=== PATIENT | male | born 1985 | race Caucasian/White ===

== ENCOUNTER 2016-07-03 20:55 | Emergency (ER) | payer OTHER ==
[2016-07-03 21:06] VITALS: BP 161/100; PULSE 109; TEMP 97.4; BMI 43.0
[2016-07-03] MEDS ORDERED: IBUPROFEN 600 MG TABLET (FP) PO ONE ×2 (21:33→21:36)
--- NOTE | 2016-07-03 21:35 | PDOC ---
History of Present Illness - General Chief Complaint: Injury Stated Complaint: FOOT PAIN/FALL Time Seen by Provider: 07/03/16 21:31 History Source: Patient Exam Limitations: No Limitations - History of Present Illness Initial Comments: 07/03/16 21:48 CHIEF COMPLAINT:: Right ankle pain after slipping on ice HISTORY OF PRESENT ILLNESS: This is a 31-year-old male with no significant medical problems here today complaining of Right ankle pain after slipping on ice to arrival here. Patient has noticeable swelling to his right lower extremity and ankle area. Patient reports the pain is a 10 out of 10 presently. Patient has been hopping since falling. Patient denies any numbness of his right lower extremity or foot. Patient denies any other injuries. 07/03/16 21:49 Occurred: reports: just prior to arrival Severity: reports: severe (rt. ankle) Pain Location: reports: lower extremity (rt. ankle) Method of Injury: Yes: fall (slipped on ice ) Modifying Factors: improves with: None Loss of Consciousness: no loss of consciousness Associated Symptoms (Fall): denies symptoms Past History - Past Medical History Allergies/Adverse Reactions: Allergies Allergy/AdvReac Type Severity Reaction Status Date / Time No Known Allergies Allergy Verified 07/03/16 21:02 Home Medications: Ambulatory Orders NK [No Known Home Medication] 07/03/16 - Psycho/Social/Smoking Cessation Hx Suicidal Ideation: No Smoking History: Never smoked Review of Systems - Review of Systems Able to Perform ROS?: Yes Constitutional: No: Symptoms Reported HEENTM: No: Symptoms Reported Respiratory: No: Symptoms reported Cardiac (ROS): No: Symptoms Reported ABD/GI: No: Symptoms Reported : No: Symptoms Reported Musculoskeletal: Yes: Joint Pain (rt. ankle b/l ), Joint Swelling (rt b/l ankle , distal rt. extremity) Integumentary: No: Symptoms Reported Neurological: No: Symptoms reported *Physical Exam - Vital Signs Last Vital Signs Temp Pulse Resp BP Pulse Ox 97.4 F L 109 H 22 161/100 99 07/03/16 21:03 07/03/16 21:03 07/03/16 21:03 07/03/16 21:03 07/03/16 21:03 - Physical Exam General Appearance: Yes: Appropriately Dressed Vascular Pulses: Doralis-Pedis (L): 4+ Extremity: positive: Normal Capillary Refill, Normal Inspection, Tender (right ankle lateral and medial malleous), Swelling (rt. ankle/distal extremity b/l ) Integumentary: positive: Normal Color, Swelling (rt. ankle/ distal rt. leg ) Neurologic: positive: Alert, Normal Response, Respond to painful stimul (rt. foot/ankle/distal rt. leg). negative: Sensory Deficit Procedures - Consent Consent obtained: From Patient - Splinting Splint Location: Right: Ankle Pre-Proc Neuro Vasc Exam: normal Pre-Made Type: aircast Marques Bandage: 3" Complications: No Post splint xray: No Good repositioning: No Progress: 07/03/16 22:21 Crutches given for ambulation Medical Decision Making - Medical Decision Making 07/03/16 21:49 This is a 31-year-old male with no significant medical problems here today complaining of Right ankle pain after slipping on ice to arrival here. Patient has noticeable swelling to his right lower extremity and ankle area. Patient reports the pain is a 10 out of 10 presently. Patient has been hopping since falling. Patient denies any numbness of his right lower extremity or foot. Patient denies any other injuries. R/O rt fracture ankle/tibia/fibia PLAN: ibuprofen 600 mg po now xray rt. ankle/foot no fracture noted xray rt. tibia/fibia no fracture noted crutches given marques wrap/ankle air cast rt. follow up with ortho tomorrow 07/03/16 22:22 *DC/Admit/Observation/Transfer Diagnosis at time of Disposition: High ankle sprain of right lower extremity Qualifiers: Encounter type: initial encounter Qualified Code(s): S93.431A - Sprain of tibiofibular ligament of right ankle, initial encounter - Discharge Dispostion Disposition: HOME Condition at time of disposition: Stable - Referrals Referrals: Jason Gaviria [Primary Care Provider] - Dave Menendez MD [Staff Physician] - - Patient Instructions Additional Instructions: Elevate right leg as much as possible and apply ice every hour for 10-15 minutes today and tomorrow Wear Marques wrap during the day and air cast taken off at night and use crutches for ambulation Take ibuprofen as needed as instructed by revenue stamper for pain Patient voiced understanding of discharge instructions and all questions were answered
[2016-07-03] MEDS ORDERED: OXYCODONE/APAP 5/325MG COMBO TABLET PO ONE (22:31)
[2016-07-03] MEDS ORDERED: OXYCODONE/APAP 5/325MG COMBO TABLET ONE (22:33)
== END 2016-07-03 22:35 | disposition home or self-care (01) ==
LOC: JERFT 20:55
PROC: 2W3LX1Z Immobilization of Right Lower Extremity using Splint (ICD-10-PCS; principal; 2016-07-03)
DX: S93.491A Sprain of other ligament of right ankle, initial encounter (principal); W00.2XXA Other fall from one level to another due to ice and snow, initial encounter; Y93.89 Activity, other specified; Y92.89 Other specified places as the place of occurrence of the external cause
CPT/HCPCS: 73590-TC-RT; 73610-TC-RT; 73630-TC-RT; 99281-25